=== PATIENT | female | born 1965 ===

== ENCOUNTER 2024-05-13 11:51 | Day surgery (SDC) | payer BC ==
[~2024-05-13] VITALS: Ht 172.7 cm; Wt 91.6 kg
[~2024-05-13 11:51] MED LIST: Lactated Ringer's 1,000 ML IV ONE; SERT50 PO; propofoL 50 ML IV ONE
[2024-05-13] MEDS ORDERED: REXULTI0.25 MG (12:17)
[2024-05-13] MEDS ORDERED: PEPCID40 MG (12:17)
[2024-05-13] MEDS ORDERED: VITAMIN D5000 UNIT (12:18)
[2024-05-13] MEDS ORDERED: Lactated Ringer's 1,000 ML IV ONE (12:51)
== END 2024-05-13 13:50 | disposition home or self-care (01) ==
LOC: ORSCSDS 11:51
PROVIDERS: Surgery
PROC: 0DJD8ZZ Inspection of Lower Intestinal Tract, Via Natural or Artificial Opening Endoscopic (ICD-10-PCS; principal; 2024-05-13 13:00)
DX: R19.4 Change in bowel habit (principal); K57.30 Diverticulosis of large intestine without perforation or abscess without bleeding; K64.8 Other hemorrhoids; F41.9 Anxiety disorder, unspecified; F32.A Depression, unspecified; F43.10 Post-traumatic stress disorder, unspecified; Z87.898 Personal history of other specified conditions; F17.210 Nicotine dependence, cigarettes, uncomplicated; Z79.899 Other long term (current) drug therapy
CPT/HCPCS: J2704; J7120